=== PATIENT | female | born 1945 | race Caucasian/White ===

== ENCOUNTER 2024-12-11 07:27 | Inpatient (IN) | payer MEDICARE, OTHER ==
[~2024-12-11] VITALS: Ht 154.9 cm; Wt 104.3 kg
[2024-12-11] MEDS: VANCOMYCIN 1G/D5W 200 ML PIGGYBACK IV ONE (07:45)
[2024-12-11] MEDS ORDERED: MONT10TA33 PO (08:12)
[2024-12-11] MEDS ORDERED: CELE200C PO (08:12)
[2024-12-11] MEDS ORDERED: ASPI-869 PO (08:12)
[2024-12-11] MEDS ORDERED: POTA-88 PO (08:12)
[2024-12-11] MEDS ORDERED: ACET-2030 PO (08:12)
[2024-12-11] MEDS ORDERED: NYST60PO TP (08:12)
[2024-12-11] MEDS ORDERED: CLOB15CR10 TP (08:12)
[2024-12-11] MEDS ORDERED: DILT60TA3 PO (08:12)
[2024-12-11] MEDS ORDERED: LOSA1TAB36 PO (08:12)
[2024-12-11] MEDS ORDERED: DICL100G31 TP (08:12)
[2024-12-11] MEDS ORDERED: PRAV20TA4 PO (08:12)
[2024-12-11] MEDS ORDERED: FURO40TA5 PO (08:12)
[2024-12-11] MEDS ORDERED: TRIA60LO16 TP (08:12)
[2024-12-11] MEDS ORDERED: LEVA15HF6 IH (08:12)
[2024-12-11] MEDS ORDERED: SITA50TA PO (08:12)
[2024-12-11] MEDS ORDERED: FLUT1BLS6 IH (08:12)
[2024-12-11 08:14] LABS: BASOPHILS # (AUTO) 0.1 K/UL (0.0-0.2); BASOPHILS % (AUTO) 1.3 % (0.0-2.0); EOSINOPHILS # (AUTO) 0.4 K/uL (0.0-0.7); EOSINOPHILS % (AUTO) 4.2 % (0.0-7.0); HEMATOCRIT 39.2 % (31.2-41.9); HEMOGLOBIN 13.1 g/dL (10.9-14.3); LYMPHOCYTES # (AUTO) 2.9 K/uL (0.8-4.8); LYMPHOCYTES % (AUTO) 35.1 % (20.5-51.5); MEAN CORPUSCULAR HEMOGLOBIN 26.8 uug (24.7-32.8); MEAN CORPUSCULAR HGB CONC 34 g/dL (32.3-35.6); MEAN CORPUSCULAR VOLUME 80.2 fL (75.5-95.3); MONOCYTES # (AUTO) 0.4 K/uL (0.1-1.30); MONOCYTES % (AUTO) 4.9 % (0.0-11.0); NEUTROPHILS # (AUTO) 4.6 K/uL (1.8-8.9); NEUTROPHILS % (AUTO) 54.5 % (38.5-71.5); PLATELET COUNT (AUTO) 373 K/uL (179-408); RED BLOOD CELL COUNT(AUTO) 4.89 MIL/uL (3.63-4.92); RED CELL DISTRIBUTION WIDTH 15.2 % (12.3-17.7); WHITE BLOOD COUNT (AUTO) 8.4 K/uL (3.8-11.8)
[2024-12-11 08:19] LABS: CALCIUM 8.9 mg/dL (8.5-10.1); CARBON DIOXIDE 32 mmol/L (21-32); CHLORIDE 96 mmol/L (98-107); CREATININE 0.7 mg/dL (0.6-1.3); GLUCOSE 118 mg/dL (74-106); POTASSIUM 3.1 mmol/L (3.5-5.1); SODIUM SERUM 137 mmol/L (136-145); UREA NITROGEN, BLOOD 8 mg/dL (7-18)
[2024-12-11 08:32] LABS: DIFFERENTIAL COMMENT 1; NT-PRO BNP 268 pg/mL (0-125)
[2024-12-11] MEDS ORDERED: PIPERACILLIN/TAZOBACTAM/D5W 50 ML IV ONE (08:33)
[2024-12-11] MEDS: PIPERACILLIN SODIUM/TAZOBACTAM 3.375 G in IV DEXTROSE 5% 50 ML IV ONE (08:38)
[2024-12-11] MEDS ORDERED: FUROSEMIDE 40 MG/4 ML VIAL ONE (08:40)
[2024-12-11] MEDS: FUROSEMIDE 40 MG/4 ML VIAL IV ONE (08:50)
[2024-12-11] MEDS: POTASSIUM CHLORIDE 20 MEQ TAB.PRT.SR PO ONE (09:10)
[2024-12-11 10:15] VITALS: BP 132/49; TEMP 98.5; O2SAT 96
[2024-12-11] MEDS: HYDROCHLOROTHIAZIDE 12.5 MG CAPSULE PO SCH (13:36)
[2024-12-11] MEDS: LOSARTAN POTASSIUM 50 MG TABLET PO SCH (13:37)
[2024-12-11 15:55] VITALS: BP 119/54; TEMP 97.9; O2SAT 100
[2024-12-11] MEDS: PIPERACILLIN SODIUM/TAZOBACTAM 3.375 G in IV DEXTROSE 5% 50 ML IV SCH (16:32)
[2024-12-11] MEDS ORDERED: ACETAMINOPHEN ES 500 MG TABLET- SA PATIENTS-PAIN ONLY PO SCH (17:00)
[2024-12-11] MEDS: ACETAMINOPHEN 500 MG TABLET PO SCH (17:32)
[2024-12-11] MEDS: DILTIAZEM HCL 60 MG TABLET PO SCH (17:32)
[2024-12-11] MEDS: VANCOMYCIN HCL 1,500 MG in IV DEXTROSE 5% 500 ML IV SCH (17:50)
[2024-12-11] MEDS: FLUTICASONE/VILANTEROL 1 EACH BLST.W.DEV INH SCH (18:24)
[2024-12-11 19:00] VITALS: BP 134/63; TEMP 98.5; O2SAT 96
[2024-12-11] MEDS ORDERED: TEMAZEPAM 15 MG CAPSULE PO PRN (20:45)
[2024-12-11] MEDS ORDERED: ACETAMINOPHEN 325 MG TABLET PO PRN (20:45)
[2024-12-11] MEDS: DOCUSATE SODIUM 250 MG CAPSULE PO SCH (21:05)
[2024-12-11] MEDS: ENOXAPARIN SODIUM 40 MG/0.4 ML DISP.SYRIN SQ SCH (21:07)
[2024-12-11] MEDS ORDERED: PIPERACILLIN SODIUM/TAZOBACTAM 3.375 G in IV DEXTROSE 5% 50 ML IV SCH (22:00)
[2024-12-12] MEDS: PANTOPRAZOLE SODIUM 40 MG TABLET.DR PO SCH (06:12)
[2024-12-12 07:13] LABS: BASOPHILS # (AUTO) 0.1 K/UL (0.0-0.2); BASOPHILS % (AUTO) 0.9 % (0.0-2.0); EOSINOPHILS # (AUTO) 0.4 K/uL (0.0-0.7); EOSINOPHILS % (AUTO) 5.1 % (0.0-7.0); HEMATOCRIT 35.4 % (31.2-41.9); HEMOGLOBIN 12.1 g/dL (10.9-14.3); LYMPHOCYTES % (AUTO) 41.4 % (20.5-51.5); MEAN CORPUSCULAR HEMOGLOBIN 27.3 uug (24.7-32.8); MEAN CORPUSCULAR HGB CONC 34 g/dL (32.3-35.6); MEAN CORPUSCULAR VOLUME 79.9 fL (75.5-95.3); MONOCYTES # (AUTO) 0.5 K/uL (0.1-1.30); MONOCYTES % (AUTO) 7.2 % (0.0-11.0); NEUTROPHILS # (AUTO) 3.3 K/uL (1.8-8.9); NEUTROPHILS % (AUTO) 45.4 % (38.5-71.5); PLATELET COUNT (AUTO) 330 K/uL (179-408); RED BLOOD CELL COUNT(AUTO) 4.43 MIL/uL (3.63-4.92); RED CELL DISTRIBUTION WIDTH 15.3 % (12.3-17.7); WHITE BLOOD COUNT (AUTO) 7.2 K/uL (3.8-11.8)
[2024-12-12 07:17] VITALS: BP 119/67; TEMP 98; O2SAT 98
[2024-12-12 07:40] LABS: THYROID STIMULATING HORMONE 2.518 mIU/mL (0.358-3.740)
[2024-12-12 07:44] LABS: DIFFERENTIAL COMMENT 1
[2024-12-12 07:56] LABS: IRON, SERUM 27 ug/dL (50-175)
[2024-12-12 08:23] LABS: ALANINE AMINOTRANSFERASE 23 U/L (14-59); ALKALINE PHOSPHATASE 64 U/L (50-136); ASPARTATE AMINOTRANSFERASE 14 U/L (15-37); BILIRUBIN,TOTAL 0.3 mg/dL (0.2-1.0); CALCIUM 8.7 mg/dL (8.5-10.1); CARBON DIOXIDE 33 mmol/L (21-32); CHLORIDE 97 mmol/L (98-107); CHOLESTEROL 203 mg/dL (<200); CREATININE 0.8 mg/dL (0.6-1.3); GLUCOSE 103 mg/dL (74-106); HDL CHOLESTEROL 47 mg/dL (40-60); MAGNESIUM 2.2 mg/dL (1.8-2.4); PHOSPHOROUS 4.6 mg/dL (2.5-4.9); POTASSIUM 3.1 mmol/L (3.5-5.1); SODIUM SERUM 139 mmol/L (136-145); TOTAL PROTEIN, SERUM 6.3 g/dL (6.4-8.2); TRIGLYCERIDES 136 MG/DL (30-150); UREA NITROGEN, BLOOD 15 mg/dL (7-18)
[2024-12-12] MEDS ORDERED: POTASSIUM CHLORIDE 20 MEQ POWDER PACKET GT ONE (08:45)
[2024-12-12] MEDS ORDERED: Medication Not On Formulary EA (Sitagliptin Phosphate (Januvia) 50 MG) PO SCH (09:00)
[2024-12-12] MEDS ORDERED: Medication Not On Formulary EA (Losartan/Hydrochlorothiazide (Losartan-Hctz 50-12.5 Mg T PO SCH (09:00)
[2024-12-12] MEDS ORDERED: CLOBETASOL PROPIONATE 0.05% CREAM 15 GM TUBE TP PRN (09:00)
[2024-12-12] MEDS ORDERED: ASPIRIN EC 325 MG TABLET.DR PO SCH (09:00)
[2024-12-12] MEDS: CELECOXIB 200 MG CAPSULE PO SCH (09:01)
[2024-12-12] MEDS: DILTIAZEM HCL 60 MG TABLET PO SCH (09:01)
[2024-12-12] MEDS: POTASSIUM CHLORIDE 10 MEQ TAB.PRT.SR PO SCH (09:02)
[2024-12-12] MEDS: FUROSEMIDE 40 MG TABLET PO SCH (09:02)
[2024-12-12] MEDS: ASPIRIN EC 81 MG TABLET.DR PO SCH (09:02)
[2024-12-12] MEDS: MONTELUKAST SODIUM 10 MG TABLET PO SCH (09:11)
[2024-12-12] MEDS: LINAGLIPTIN 5 MG TABLET PO SCH (09:11)
[2024-12-12] MEDS: POTASSIUM CHLORIDE 20 MEQ TAB.PRT.SR PO ONE ×2 (09:24→14:45)
[2024-12-12] MEDS: POTASSIUM CHLORIDE 50 ML IV SCH (09:45)
[2024-12-12 11:44] VITALS: BP 108/61; TEMP 98; O2SAT 95
[2024-12-12 12:03] LABS: *OCCULT BLOOD STOOL NEGATIVE (NEGATIVE)
[2024-12-12 14:22] VITALS: BP 114/60; TEMP 98.6; O2SAT 98
[2024-12-12 17:00] VITALS: BP 114/60
[2024-12-12] MEDS ORDERED: DOCUSATE SODIUM 100 MG CAPSULE PO SCH (21:00)
== END 2024-12-12 18:35 | disposition left against medical advice (07) | DRG 603 ==
LOC: ER 07:27 → MEDSURG3 09:00 → TELE3 12-12 13:58 → MEDSURG3 12-12 14:10
PROVIDERS: ADMIT Internal Medicine; ATTEND Internal Medicine
PROC: 05HC33Z Insertion of Infusion Device into Left Basilic Vein, Percutaneous Approach (ICD-10-PCS; principal; 2024-12-11)
DX: L03.116 Cellulitis of left lower limb (principal); I47.19 Other supraventricular tachycardia; I50.32 Chronic diastolic (congestive) heart failure; Z68.41 Body mass index [BMI] 40.0-44.9, adult; J96.10 Chronic respiratory failure, unspecified whether with hypoxia or hypercapnia; D68.59 Other primary thrombophilia; I69.354 Hemiplegia and hemiparesis following cerebral infarction affecting left non-dominant side; I11.0 Hypertensive heart disease with heart failure; J44.9 Chronic obstructive pulmonary disease, unspecified; E66.9 Obesity, unspecified; Z87.891 Personal history of nicotine dependence; Z53.29 Procedure and treatment not carried out because of patient's decision for other reasons; I25.10 Atherosclerotic heart disease of native coronary artery without angina pectoris; I25.2 Old myocardial infarction; Z74.09 Other reduced mobility; E78.5 Hyperlipidemia, unspecified; E11.9 Type 2 diabetes mellitus without complications; N93.9 Abnormal uterine and vaginal bleeding, unspecified; Z88.1 Allergy status to other antibiotic agents; Z85.41 Personal history of malignant neoplasm of cervix uteri; Z90.49 Acquired absence of other specified parts of digestive tract; Z86.16 Personal history of COVID-19; Z88.6 Allergy status to analgesic agent; Z85.42 Personal history of malignant neoplasm of other parts of uterus; E87.6 Hypokalemia; I87.2 Venous insufficiency (chronic) (peripheral); Z99.81 Dependence on supplemental oxygen; Z79.84 Long term (current) use of oral hypoglycemic drugs; R60.0 Localized edema
CPT/HCPCS: 36415; 71045; 83550; 83605; 83735; 84100; 84443; 84484; 85025; 87040; A4606; A4663; A9150; G0378; J1650; J1938; J2543; J3371; J3480; J7060